=== PATIENT | male | born 1970 | race Caucasian/White ===

== ENCOUNTER 2020-04-13 08:00 | Outpatient (CLI) | payer OTHER ==
[~2020-04-13] VITALS: Ht 177.8 cm; Wt 113.6 kg
[2020-04-13] MEDS ORDERED: percocet PO (16:17)
== END 2020-04-13 23:59 | disposition home or self-care (01) ==
LOC: STAR 08:00 → EDSTATUS 04-15 12:30
PROVIDERS: ATTEND Orthopaedic Surgery
DX: Z20.822 Contact with and (suspected) exposure to COVID-19 (principal); S52.614A Nondisplaced fracture of right ulna styloid process, initial encounter for closed fracture; S52.571A Other intraarticular fracture of lower end of right radius, initial encounter for closed fracture; X58.XXXA Exposure to other specified factors, initial encounter; Y93.89 Activity, other specified; Y92.89 Other specified places as the place of occurrence of the external cause; Y99.8 Other external cause status
CPT/HCPCS: U0003